=== PATIENT | male | born 1990 | race Caucasian/White ===

== ENCOUNTER 2016-10-17 00:01 | Emergency (ER) | payer BC ==
[2016-10-17 00:28] VITALS: BP 149/83; PULSE 75; RESP 18; TEMP 98.9; O2SAT 100
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
== END 2016-10-17 02:57 | disposition home or self-care (01) ==
LOC: H.ER 00:01
DX: S00.83XA Contusion of other part of head, initial encounter (principal); Y04.0XXA Assault by unarmed brawl or fight, initial encounter; Y93.01 Activity, walking, marching and hiking; Y92.410 Unspecified street and highway as the place of occurrence of the external cause; Z23 Encounter for immunization